=== PATIENT | male | born 1990 | race Caucasian/White ===

== ENCOUNTER 2021-12-27 20:19 | Emergency (ER) | payer BC ==
[~2021-12-27] VITALS: Ht 193 cm; Wt 96.6 kg
--- NOTE | 2021-12-27 20:37 | NUR ---
BIBS. R TESTICLE WORSENING PAIN & SWELLING. DX W/ ORCHITIS AND ON ATB TX SINCE SUNDAY. PATIENT ALERT AND ORIENTED X3. AMBULATORY WITH NON LABORED BREAHTING IN BED 11 ON MONITOR AWAITING MD CAMPO.
--- NOTE | 2021-12-27 21:30 | NUR ---
Patient discharged to home in stable condition. Written and verbal after care instructions given. Patient verbalizes understanding of instruction.
[2021-12-27 21:31] VITALS: BP 145/98
== END 2021-12-27 21:31 | disposition home or self-care (01) ==
LOC: ER 20:22
DX: N45.3 Epididymo-orchitis (principal); Z60.2 Problems related to living alone
CPT/HCPCS: 76870-TC